=== PATIENT | male | born 1955 | race Caucasian/White ===

== ENCOUNTER → 2018-12-10 06:32 | Day surgery (SDC) | payer MEDICARE, OTHER ==
[~2018-12-10 06:32] MED LIST: Acetaminophen TAB* 325 MG PO PRN; Buffered Lidocaine 1% SYRIN* 1 ML/SYRINGE INTRADERM ONE; Dexamethasone IV* 4 MG/ML 1 ML (4 MG) ONE; Famotidine IV* 10 MG/ML 2 ML (20 mg) IV ONE; Famotidine IV* 10 MG/ML 2 ML (20 mg) ONE; KETAMINE HCL* 50 MG/ML 10 ML VIAL ONE; Labetalol IV* 5 MG/ML 20 ML VIAL ONE; Lactated Ringers 1000 ML Bag* 1,000 ML IV SCH; Lidocaine 2% PF * 5 ML VIAL ONE; Midazolam* 1 MG/ML 10 ML VIAL (10 MG) ONE; Naloxone* 0.4 MG/ML 1 ML VIAL IV PRN; Ondansetron INJ* 2 MG/ML VIAL IV PRN; Ondansetron INJ* 2 MG/ML VIAL ONE; Propofol* 10 MG/ML 20 ML BTL ONE; fentaNYL* 50 MCG/ML 2 ML VIAL (100 MCG VIAL) ONE
[2018-12-10 10:27] VITALS: BP 140/76
--- NOTE | 2018-12-11 22:32 | PRO ---
CC: Dr. Jorge Jeffery * COLONOSCOPY REPORT: DATE OF PROCEDURE: 12/10/18 - [facility] PHYSICIAN: Dr. Jorge Jeffery. INDICATION FOR PROCEDURE: History of colon polyps. PROCEDURE PERFORMED: Complete colonoscopy to the terminal ileum. MEDICATIONS GIVEN: Please see Anesthesia record. DESCRIPTION OF PROCEDURE: After the colonoscopy procedure including the risks, benefits, and alternatives with the risks not limited to perforation, surgery, missed lesions, and/or were explained to the patient, written informed consent was obtained. IV medication was given and a rectal exam was performed. The rectal exam was unremarkable. The adult Olympus colonoscope was then inserted into the patient's rectum, advanced carefully to the entirety of the colon into the cecal base. Cecal base was carefully inspected and normal in appearance. The preparation was good. The terminal ileal valve was identified and intubated x4 to 5 cm and normal. The scope was then returned to the cecum. Over the next 40 minutes, the scope was carefully withdrawn inspecting the mucosa. Photograph was taken of the cecal cap. In the ascending colon, a 1-cm polyp was removed with hot snare polypectomy in entirety. In the transverse colon, an additional polyp was removed with cold snare polypectomy in entirety. In the descending colon, 3 polyps removed with cold snare polypectomy in entirety. At 60 cm, a polyp was removed with hot snare polypectomy in 2 pieces and finally an additional 2 polyps in the rectum were removed with biopsy polypectomy. Additional 3 polyps were removed with biopsy polypectomy in the rectum. The scope was then returned to the rectum. On retroflexion, the views were normal. The scope was then removed from the patient. He tolerated the procedure well. He returned to the recovery room in stable condition. IMPRESSION: 1. Complete colonoscopy to the terminal ileum. 2. Good prep. 3. Hot snare polypectomy x2 as above, one of them at 60 cm, in 2 pieces. 4. Cold snare polypectomy x4 polyps as above. 5. Biopsy polypectomy times an additional 3 polyps as above. 6. Good prep. 7. Moderate diverticulosis coli throughout. RECOMMENDATIONS: Repeat colonoscopy in 1 year given polyp burden. [id number] #: [id number] MTDD
== END | disposition home or self-care (01) ==
LOC: OR 06:32
PROVIDERS: ATTEND Internal Medicine Gastroenterology
DX: Z09 Encounter for follow-up examination after completed treatment for conditions other than malignant neoplasm (principal); Z86.010 Personal history of colon polyps; D12.2 Benign neoplasm of ascending colon; D12.3 Benign neoplasm of transverse colon; D12.4 Benign neoplasm of descending colon; D12.5 Benign neoplasm of sigmoid colon; K57.30 Diverticulosis of large intestine without perforation or abscess without bleeding; J44.9 Chronic obstructive pulmonary disease, unspecified; Z72.0 Tobacco use; Z85.46 Personal history of malignant neoplasm of prostate; Z68.34 Body mass index [BMI] 34.0-34.9, adult
CPT/HCPCS: 88305; J1100; J2250; J2405; J2704; J3010